=== PATIENT | female | born 1935 | race Caucasian/White ===

== ENCOUNTER 2018-03-31 13:35 | Emergency (ER) | payer OTHER ==
[2018-03-31 13:49] VITALS: BMI 35.2
--- NOTE | 2018-03-31 14:15 | PDOC ---
History of Present Illness - General History Source: Patient Exam Limitations: No Limitations - History of Present Illness Initial Comments: 03/31/18 15:01 The patient is a 83 year old female with past medical history of hysterectomy ( January 27, 2018), and lower back injury presents to the emergency department complaining of right sacral region. The patient reports pain is nonradiating, aggravated upon ambulation w/ onset of sharp pain which changed in severity throughout movement, relief with rest and daily advil use every 8 hours for the past 2 weeks. The patient reports since the surgery she's been constipated and having trouble urinating, the patient reports the false urgency to urinate several times throughout the day, with occasional urinary incontinence, takes mineral supplements for the urinary problem. The patient reports right lower extremity swelling which the patient think is due her right knee problem. Denies any recent falls or trauma. Denies any loss of sensation. Denies any fever, chills, nausea, vomiting. Denies any dysuria or hematuria. Denies chest pain or SOB. PCP: Dr. Giacomo Dominique. Allergies: green leafy vegetable, dill oil, beets and penicillins. Social history: Occasional wine drinker, Denies history of smoking or the use of recreational drugs. <Kalina Sandoval - Last Filed: 03/31/18 15:01> <Joanna Loja - Last Filed: 03/31/18 18:41> - General Chief Complaint: Pain Stated Complaint: LEFT HIP PAIN Time Seen by Provider: 03/31/18 13:38 Past History <Kalina Sandoval - Last Filed: 03/31/18 15:01> - Past Medical History COPD: No Diabetes: Yes HTN: Yes - Suicide/Smoking/Psychosocial Hx Smoking History: Never smoked Have you smoked in the past 12 months: No Information on smoking cessation initiated: No Hx Alcohol Use: (glass of wine nightly) <Joanna Loja - Last Filed: 03/31/18 18:41> - Past Medical History Allergies/Adverse Reactions: Allergies Allergy/AdvReac Type Severity Reaction Status Date / Time Penicillins Allergy Unknown Verified 03/31/18 13:38 dill oil Allergy Verified 03/31/18 13:38 beets Allergy Uncoded 03/31/18 13:38 green leafy vegetables Allergy Uncoded 03/31/18 13:38 Home Medications: Ambulatory Orders Cholecalciferol (Vitamin D3) [Vitamin D3] 2,000 unit PO DAILY tablet 01/25/15 Sulfamethoxazole/Trimethoprim [Bactrim Ds -] 1 tab PO BID #6 tablet 03/31/18 Review of Systems - Review of Systems Able to Perform ROS?: Yes Comments:: 03/31/18 15:03 GENERAL/CONSTITUTIONAL: No fever or chills. No weakness. HEAD, EYES, EARS, NOSE AND THROAT: No change in vision. No ear pain or discharge. No sore throat. CARDIOVASCULAR: No chest pain or shortness of breath. RESPIRATORY: No cough, wheezing, or hemoptysis. GASTROINTESTINAL: (+) Constipation. No nausea, vomiting, diarrhea. GENITOURINARY: (+) urinary incontinence No dysuria or hematuria . MUSCULOSKELETAL: (+) Lower sacral region pain. (+)Right lower extremity swelling. No joint or muscle swelling or pain. No neck or upper back pain. SKIN: No rash NEUROLOGIC: No headache, vertigo, loss of consciousness, or change in strength/ sensation. ENDOCRINE: No increased thirst. No abnormal weight change. HEMATOLOGIC/LYMPHATIC: No anemia, easy bleeding, or history of blood clots. ALLERGIC/IMMUNOLOGIC: No hives or skin allergy. <Kalina Sandoval - Last Filed: 03/31/18 15:01> *Physical Exam - Vital Signs Last Vital Signs Temp Pulse Resp BP Pulse Ox 97.6 F 77 18 170/70 100 03/31/18 13:35 03/31/18 13:35 03/31/18 13:35 03/31/18 13:35 03/31/18 13:35 <Kalina Sandoval - Last Filed: 03/31/18 15:01> - Vital Signs Last Vital Signs Temp Pulse Resp BP Pulse Ox 97.6 F 77 18 170/70 100 03/31/18 13:35 03/31/18 13:35 03/31/18 13:35 03/31/18 13:35 03/31/18 13:35 - Physical Exam Comments: GENERAL: Awake, alert, and fully oriented, in no acute distress HEAD: No signs of trauma EYES: PERRLA, EOMI, sclera anicteric, conjunctiva clear ENT: Auricles normal inspection, hearing grossly normal, nares patent, oropharynx clear without exudates. Moist mucosa NECK: Normal ROM, supple, no lymphadenopathy, JVD, or masses LUNGS: Breath sounds equal, clear to auscultation bilaterally. No wheezes, and no crackles HEART: Regular rate and rhythm, normal S1 and S2, no murmurs, rubs or gallops ABDOMEN: Soft, nontender, normoactive bowel sounds. No guarding, no rebound. No masses EXTREMITIES: Pain elicited on SLR of the R hip. Otherwise extremities with normal range of motion, no edema. No clubbing or cyanosis. No cords, erythema, or tenderness NEUROLOGICAL: Cranial nerves II through XII grossly intact. Normal speech, normal gait. Motor and sensation intact. SKIN: Warm, Dry, normal turgor, no rashes or lesions noted. SPINE: No midline tenderness. 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 APPLE read the studies, they are both negative for acute processes. Left message on her VM that studies were normal, as she did not answer work or home phone. <Joanna Loja - Last Filed: 03/31/18 18:41> *DC/Admit/Observation/Transfer - Attestations Scribe Attestion: 03/31/18 15:04 Documentation prepared by Kalina Sandoval, acting as emergency medical services coordinator for Joanna Loja MD. <Kalina Sandoval - Last Filed: 03/31/18 15:01> - Discharge Dispostion Decision to Admit order: No <Joanna Loja - Last Filed: 03/31/18 18:41> Diagnosis at time of Disposition: UTI (urinary tract infection) Qualifiers: Urinary tract infection type: site unspecified Hematuria presence: without hematuria Qualified Code(s): N39.0 - Urinary tract infection, site not specified - Discharge Dispostion Disposition: HOME Condition at time of disposition: Stable - Prescriptions Prescriptions: Sulfamethoxazole/Trimethoprim [Bactrim Ds -] 1 tab PO BID #6 tablet - Referrals Referrals: Giacomo Dominique MD [Primary Care Provider] - - Patient Instructions Printed Discharge Instructions: DI for Urinary Tract Infection (UTI) - Post Discharge Activity
[2018-03-31] MEDS ORDERED: IBUPROFEN 200 MG TABLET PO ONE (16:29)
[2018-03-31] MEDS ORDERED: IBUPROFEN 400 MG TABLET (FP) PO ONE (16:29)
[2018-03-31 16:33] LABS: PH,URINE 5.5 (4.5-8); URINE APPEARANCE Clear; URINE BILIRUBIN Negative (NEGATIVE); URINE GLUCOSE (UA) Negative (NEGATIVE); URINE KETONE Negative (NEGATIVE); URINE NITRITE Positive (NEGATIVE); URINE PROTEIN Negative (NEGATIVE); URINE UROBILINOGEN 0.2 (0.2-1.0)
[2018-03-31 16:34] LABS: URINE COLOR YELLOW; URINE LEUK ESTERASE 1+ (NEGATIVE)
[2018-03-31] MEDS ORDERED: SULFAMETHOXAZOLE/TRIMETHOPRIM 800MG/160MG D.S. TABLET PO ONE (16:36)
[2018-03-31] MEDS ORDERED: SULFAMETHOXAZOLE/TRIMETHOPRIM 800MG/160MG D.S. TABLET ONE (16:51)
[2018-03-31 17:06] LABS: URINE RBC 0-2 /hpf (0-3); URINE WBC >50 (0-5)
[2018-03-31 17:07] LABS: EPI CELLS FEW /HPF; URINE BACTERIA MODERATE /hpf (NEGATIVE)
[2018-03-31 18:06] VITALS: BP 158/76; PULSE 76; TEMP 97.8
== END 2018-03-31 18:05 | disposition home or self-care (01) ==
LOC: FER 13:35
DX: N39.0 Urinary tract infection, site not specified (principal); I10 Essential (primary) hypertension; E11.9 Type 2 diabetes mellitus without complications; Z90.710 Acquired absence of both cervix and uterus; Z88.0 Allergy status to penicillin; Z91.018 Allergy to other foods
CPT/HCPCS: 72100-TC-FY; 73523-TC-FY; 81003; 81015; 87077; 87086; 93971-TC; 99283-25

== ENCOUNTER 2021-11-07 10:52 | Emergency (ER) | payer OTHER ==
[2021-11-07 11:11] VITALS: BP 186/80; PULSE 82; TEMP 98.2; BMI 26.9
== END 2021-11-07 19:02 | disposition home or self-care (01) ==
LOC: FER 10:52
DX: N39.0 Urinary tract infection, site not specified (principal)
CPT/HCPCS: 72131-TC; 74176-TC; 81003; 81015; 87086; 87186; 99285-25